=== PATIENT | female | born 2000 | race Caucasian/White ===

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

== ENCOUNTER 2021-02-09 16:36 | Outpatient (CLI) | payer BC, OTHER, MEDICAID, SELFPAY ==
[2021-02-09 16:47] VITALS: BP 123/94; PULSE 113; RESP 16; TEMP 37.3; O2SAT 99; BMI 26.6
[2021-02-09] MEDS: 0.9% Saline Lock 10 ML Syringe IV (16:59)
[2021-02-09 17:38] VITALS: BP 108/77; PULSE 105; RESP 16; TEMP 37.2; O2SAT 100
[2021-02-09 18:20] VITALS: BP 111/77; PULSE 104; RESP 16; TEMP 37.1; O2SAT 100
== END 2021-02-09 18:34 | disposition home or self-care (01) ==
LOC: MS3OUT 16:37 → MS3 16:37
PROVIDERS: PCP Pediatrics; Referring Provider Nurse Practitioner Adult Health; Visit Provider Nurse Practitioner Adult Health
DX: U07.1 COVID-19 (principal)
CPT/HCPCS: J7050; M0245; Q0245; A4216

== ENCOUNTER 2022-03-19 10:50 | Outpatient (CLI) | payer BC, MEDICAID, SELFPAY ==
[2022-03-19 11:00] VITALS: BMI 29.2
[2022-03-19 11:09] VITALS: TEMP 36.8
[2022-03-19 11:10] VITALS: BP 118/75; PULSE 108; O2SAT 90
[2022-03-19 11:11] VITALS: PULSE 111; O2SAT 96
--- NOTE | 2022-03-19 20:35 | OB.TRI.NOTE ---
HPI - General HPI Narrative GUCCI VARGAS, is a 22 F at 34.0 weeks gestation who presents with decreased movement. She stated she has felt minimal movement since this morning. Patient has a history of a demise after delivering at 33 weeks (known anomalies). Patient denies any contractions, loss of fluid or vaginal bleeding. PFSH PFSH Home Medications vits,calcium no.78-iron fumarate-folic acid 29 mg-1 mg tablet (Prenatabs FA) 1 tab PO DAILY 06/15/18 [History Last Taken 06/14/18] acetaminophen 500 mg tablet 1,000 mg PO Q8H PRN PRN Mild Pain (-04/28) 06/17/18 [Rx Last Taken Unknown] Lactobacillus acidophilus 10 billion cell capsule (Probiotic) 10,000 mmu cells PO DAILY 03/19/22 [History Last Taken Unknown] Vitamin D See Rx Instructions .Route .COMPLEX 03/19/22 [History Last Taken Unknown] Allergy/AdvReac Type Severity Reaction Status Date / Time No Known Allergies Allergy Verified 03/19/22 12:00 Social History Smoking Status: Never smoker History Elective abortions Hx Para 0 Spontaneous abortions Hx # Term Pregnancies Ectopic pregnancies Hx # Pregnancies Multiple births # of living children ROS Eyes Eyes: Denies blurry vision Cardiovascular Cardiovascular: Reports none; Denies chest pain at rest, chest pain with activity or dizziness Respiratory/Chest Respiratory/Chest: Denies cough or dyspnea Gastrointestinal Gastrointestinal: Reports none and other; Denies diarrhea or vomiting Genitourinary Genitourinary: Denies dysuria Musculoskeletal Musculoskeletal: Reports none Integumentary Integumentary: Reports none; Denies rash Neurologic Neurologic: Denies dizziness, headache(s) or other visual disturbances Psychiatric Psychiatric: Reports none Physical Exam Const alert and no apparent distress General Appearance: cooperative Orientation / Consciousness: awake Exam Limitations: no limitations HEENT normocephalic Eyes General Eye: normal appearance of both eyes Neck full ROM Chest inspection of chest normal Resp normal respiratory effort and normal air movement Effort and Inspection: symmetric chest movement Auscultation: clear to auscultation bilaterally Cardio regular rate GI soft to palpation, non-tender and non-distended Inspection: and other Back/Spine normal ROM Extremity full ROM, normal capillary refill and no calf tenderness Skin no rashes or lesions noted Neuro oriented x3 and CN's II-XII intact bilaterally Psych mental status grossly normal NST FHR Rate Baby A Baseline: 130 Variability:: Moderate Accelerations:: 15 x 15 Decelerations:: None NST Reactive:: Yes FHR Category:: Category I Uterine Activity:: none Assessment & Plan (1) 34 weeks gestation of : (2) Decreased movement: (3) History of : (4) Short interval between pregnancies affecting , antepartum: PLAN: Plan NST reactive Patient has felt movement since arrival to triage Support provided D/C home with follow up in office PTL and kick counts reviewed
== END 2022-03-19 12:00 | disposition home or self-care (01) ==
LOC: WPOUT 10:59 → WP 11:00
PROVIDERS: PCP Internal Medicine; Referring Provider Advanced Practice Midwife; Visit Provider Advanced Practice Midwife
DX: O36.8130 Decreased fetal movements, third trimester, not applicable or unspecified (principal); Z3A.34 34 weeks gestation of pregnancy
CPT/HCPCS: 59025; 59050

== ENCOUNTER 2022-04-08 19:30 | Outpatient (CLI) | payer BC, MEDICAID, SELFPAY ==
[2022-04-08 19:46] VITALS: BP 121/71; PULSE 137
[2022-04-08 19:47] VITALS: PULSE 129; TEMP 37; O2SAT 98
[2022-04-08 19:52] VITALS: BMI 29.8
[2022-04-08 20:29] LABS: ROM Internal Control Test YES-OK TO RESULT pt. (Internal QC)
[2022-04-08 21:00] LABS: ROM Patient Test Negative (Negative)
--- NOTE | 2022-04-08 21:02 | OB.TRI.NOTE ---
HPI - General HPI Narrative GUCCI VARGAS, is a 22 F at 36.6 weeks gestation who presents to triage for contractions. Patient called in and stated she has been having contractions most of the day today. Irregular at times but usually occurring every 5-10 minutes. Rates pain 6/10. She has to stop walking and talking through some of the contractions. Positive movement. Denies any vaginal bleeding or gush of fluid. Reports an increase in vaginal discharge today. PFSH PFSH Home Medications vits,calcium no.78-iron fumarate-folic acid 29 mg-1 mg tablet (Prenatabs FA) 1 tab PO DAILY 06/15/18 [History Last Taken 04/08/22] Lactobacillus acidophilus 10 billion cell capsule (Probiotic) 10,000 mmu cells PO DAILY 03/19/22 [History Last Taken 04/08/22] Vitamin D See Rx Instructions .Route .COMPLEX 03/19/22 [History Last Taken 04/08/22] Allergy/AdvReac Type Severity Reaction Status Date / Time gluten AdvReac Upset Verified 04/08/22 19:58 Stomach Social History Smoking Status: Never smoker History Elective abortions Hx Para 0 Spontaneous abortions Hx # Term Pregnancies Ectopic pregnancies Hx # Pregnancies Multiple births # of living children ROS Eyes Eyes: Denies blurry vision Cardiovascular Cardiovascular: Reports none; Denies chest pain at rest, chest pain with activity or dizziness Respiratory/Chest Respiratory/Chest: Denies cough or dyspnea Gastrointestinal Gastrointestinal: Reports none and other; Denies diarrhea or vomiting Genitourinary Genitourinary: Denies dysuria Musculoskeletal Musculoskeletal: Reports none Integumentary Integumentary: Reports none; Denies rash Neurologic Neurologic: Denies dizziness, headache(s) or other visual disturbances Psychiatric Psychiatric: Reports none Physical Exam Const alert and no apparent distress General Appearance: cooperative Orientation / Consciousness: awake Exam Limitations: no limitations HEENT normocephalic Eyes General Eye: normal appearance of both eyes Neck full ROM Chest inspection of chest normal Resp normal respiratory effort and normal air movement Effort and Inspection: symmetric chest movement Auscultation: clear to auscultation bilaterally Cardio regular rate GI soft to palpation, non-tender and non-distended Inspection: and other Back/Spine normal ROM Extremity full ROM, normal capillary refill and no calf tenderness Skin no rashes or lesions noted Neuro oriented x3 and CN's II-XII intact bilaterally Psych mental status grossly normal Assessment & Plan (1) Short interval between pregnancies affecting , antepartum: (2) 36 weeks gestation of : (3) contractions: (4) Positive GBS test: (5) GDM (gestational diabetes mellitus): PLAN: Plan NST reactive- Cat, 1 tracing ROM plus- NEGATIVE CE- /-2 Extended monitoring No cervical change D/C home with follow up in office Patient agrees with plan of care Dr. Alvares notified
[2022-04-08 21:30] VITALS: PULSE 95; O2SAT 97
== END 2022-04-08 22:18 | disposition home or self-care (01) ==
LOC: WPOUT 19:34 → WP 19:35
PROVIDERS: PCP Internal Medicine; Visit Provider Advanced Practice Midwife
DX: O60.03 Preterm labor without delivery, third trimester (principal); O99.820 Streptococcus B carrier state complicating pregnancy; O24.410 Gestational diabetes mellitus in pregnancy, diet controlled; O26.893 Other specified pregnancy related conditions, third trimester; Z3A.36 36 weeks gestation of pregnancy
CPT/HCPCS: 59025; 59050; 84112; 99221; G0378

== ENCOUNTER 2022-04-16 16:57 | Outpatient (CLI) | payer BC, MEDICAID, SELFPAY ==
[2022-04-16 17:15] VITALS: BP 127/78; PULSE 93; TEMP 36.7
[2022-04-16 17:16] VITALS: PULSE 91; O2SAT 97
[2022-04-16 17:17] VITALS: BMI 29.7
[2022-04-16 17:34] LABS: ROM Internal Control Test YES-OK TO RESULT pt. (Internal QC); ROM Patient Test Negative (Negative)
--- NOTE | 2022-04-19 06:52 | OB.TRI.NOTE ---
HPI - General General Date of Admission: 05/14/22 Date of Service: 05/14/22 HPI Narrative GUCCI VARGAS, is a 22 F who presents c/o vaginal discharge in Maternal Data Information Final CYRIL: 04/30/22 Gestational age: 38 0/7 PFSH PFSH Home Medications vits,calcium no.78-iron fumarate-folic acid 29 mg-1 mg tablet (Prenatabs FA) 1 tab PO DAILY 06/15/18 [History Last Taken 04/15/22 21:00] Lactobacillus acidophilus 10 billion cell capsule (Probiotic) 10,000 mmu cells PO DAILY 03/19/22 [History Last Taken 04/15/22 21:00] Vitamin D See Rx Instructions .Route .COMPLEX 03/19/22 [History Last Taken 04/15/22 21:00] Allergy/AdvReac Type Severity Reaction Status Date / Time Environmental Allergies: Allergy Other Verified 04/16/22 17:19 Uncoded [seasonal] gluten AdvReac Upset Verified 04/16/22 17:19 Stomach Social History Smoking Status: Never smoker History Elective abortions Hx Para 0 Spontaneous abortions Hx # Term Pregnancies Ectopic pregnancies Hx # Pregnancies Multiple births # of living children NST FHR Rate Baby A Baseline: 140 Variability:: Moderate Accelerations:: 15 x 15 Decelerations:: None NST Reactive:: Yes FHR Category:: Category I Uterine Activity:: irreg ctxs Assessment & Plan (1) 38 weeks gestation of : PLAN: NST reactive, return prn or as scheduled. No evidence of labor oer SROM (2) False labor:
--- NOTE | 2022-04-19 11:46 | OB.TRI.NOTE ---
HPI - General General Date of Service: 04/16/22 Chief Complaint: r/o ROM HPI Narrative GUCCI VARGAS, is a 22 F @38 weeks who presents to R/o ROM PFS PFS Home Medications vits,calcium no.78-iron fumarate-folic acid 29 mg-1 mg tablet (Prenatabs FA) 1 tab PO DAILY 06/15/18 [History Last Taken 04/15/22 21:00] Lactobacillus acidophilus 10 billion cell capsule (Probiotic) 10,000 mmu cells PO DAILY 03/19/22 [History Last Taken 04/15/22 21:00] Vitamin D See Rx Instructions .Route .COMPLEX 03/19/22 [History Last Taken 04/15/22 21:00] Allergy/AdvReac Type Severity Reaction Status Date / Time Environmental Allergies: Allergy Other Verified 04/16/22 17:19 Uncoded [seasonal] gluten AdvReac Upset Verified 04/16/22 17:19 Stomach Social History Smoking Status: Never smoker History Elective abortions Hx Para 0 Spontaneous abortions Hx # Term Pregnancies Ectopic pregnancies Hx # Pregnancies Multiple births # of living children NST FHR Rate Baby A Baseline: 140 Variability:: Moderate Accelerations:: 15 x 15 Decelerations:: None NST Reactive:: Yes FHR Category:: Category I Uterine Activity:: irregular Assessment & Plan (1) False labor: (2) 38 weeks gestation of : (3) GDM (gestational diabetes mellitus): (4) Positive GBS test: PLAN: Plan @ 38 weeks, membranes intact ROM plus was negative NST was reactive dc home
--- NOTE | 2022-04-21 12:54 | PCM.OPRPT ---
Report of Operation Date of Procedure: 04/21/22 Pre-Operative Diagnosis: desires sterilization Post-Operative Diagnosis: same Surgery/Procedure Performed:: Laparoscopic bilateral salpingectomy Description of Surgical Findings:: Normal tubes and ovaries bilaterally Surgeon: Lorena Leyva cosmetics demonstrator: None (Rosemary Castro, MS3 ) Type of Anesthesia: General and Local Special Medications: 0.5% maracaine Specimen's removed: Bilateral fallopian tubes Drains: none Estimated Blood Loss (mL): 10 Fluids Replaced: 1000 Description of Procedure: After informed consent was obtained patient was taken to the operating room she was placed in supine position she was given anesthesia. She was then placed in the [facility] and she was prepped and draped in normal sterile fashion. Bladder was drained prior to the start of procedure. At this time attention was turned to the vaginal portion where weighted speculum placed at posterior fornix vagina single-tooth tenaculum was used to gently grasp the internal the cervix. uterus was gently sounded to approximately 7 cm. Uterine manipulator was placed without difficulty. Legs then placed in parallel with the abdomen the tenaculum and the weighted speculum were removed. 2 towel clamps were placed at level of umbilicus. Marcaine was injected infraumbilical and a small incision was made. The 5 mm trocar was placed under direct visualization. CO2 gas was used to insufflate the intra-abdominal cavity. Upon inspection no gross abnormalities appreciated- Uterine perforation noted from manipulator at fundus, minimal bleeding noted. the uterus tubes and ovaries appeared to be normal. At this time then the LLQ and RLQ ports were placed First Marcaine was injected and small incision was made a knife and the 5 mm trocars were placed. At this time then tubes were traced back to the fimbriated ends. Enseal was used to coagulate and ligate along mesosalpinx bilaterally until tubes removed completely. Good hemostasis was appreciated. The manipulator was removed while watching laparoscopically. At this time Michell placed over fundal aspect but small oozing still noted so monopolor cautery used to coagulate area- excellent hemostatis noted. At this time procedure was deemed complete successful. The gas was desufflated on from the intra-abdominal cavity. The trochars were removed. Skin was closed using 4-0 Monocryl in a subcutaneous fashion. Dermabond glue was placed. Instrument lap and needle counts were correct ?2. The uterine manipulator was removed. Vaginal sweep was performed it was negative. There were no complications anticipated normal postoperative course for this patient. Grafts/Implants Used: none Procedure Start Time: 12:18 Procedure Stop Time: 12:54 Complications uterine perforation at uterine fundus at time of placement of uterine manipulator- ancef 2g given. Admit VTE Documentation VTE Present on Admission: Yes VTE Mechan Device Prophylaxis: SCD's VTE Pharm Prophylaxis ordered?: No Reason prophylaxis not ordered:: Procedure Not Indicated
--- NOTE | 2022-04-21 12:59 | DCINST_ITS ---
Discharge Instructions Procedure Other Diet Discharge Diet: No restrictions Activity May resume sexual activity in: 2 weeks Lifting Restrictions: 20-25 lbs Dressing / Incision Call your doctor if your incision/area has: Continuous Slow Oozing, Sudden Increased Bleeding, Increased Pain/ Swelling, Increased Redness, Foul Smelling Discharge and Swelling at the incision site Call your doctor if you observe: Fever of 101 or Higher, Inability to urinate, Inability to have a bowel movement, Using more than 1 pad per hour and Uncontrolled pain Additional Dressing/Incision Instructions:: You have skin glue over your incision sites, do not pick off. You may shower and let the soap and water run over the incision sites and dab dry. Follow Up Care Please Follow Up With: Lorena Leyva MD When: 1-2 weeks post OP if you need an appointment please call [phone] Test Results: Test results from this visit will be discussed in further detail at your follow- up appointment, if applicable. Discharge Plan Admission Reason For Visit: R/O RUPTURE Attending Provider: Lorena Leyva Primary Care Provider: Adelina Carrillo Discharge Date/Time: 04/16/22 17:45 Instructions Patient Instructions: ED False Labor, OB Triage: Return to Hospital or Notify Physician if you Experience: Discharge Orders/Prescriptions Prescriptions: No Action Prenatabs FA 1 TABLET tablet 1 tab PO DAILY Probiotic 10 billion cell Capsule 10,000 mmu cells PO DAILY Vitamin D See Rx Instructions .ROUTE .COMPLEX Rx Instructions: Vitamin D taken daily Referrals / Follow Up: Adelina Carrillo MD [Primary Care Provider] - Disposition Patient Disposition: Home, Self Care
== END 2022-04-16 17:45 | disposition home or self-care (01) ==
LOC: WPOUT 17:03 → WP 17:04
PROVIDERS: PCP Internal Medicine; Referring Provider Obstetrics & Gynecology; Visit Provider Obstetrics & Gynecology
DX: O47.1 False labor at or after 37 completed weeks of gestation (principal); O24.419 Gestational diabetes mellitus in pregnancy, unspecified control; Z3A.38 38 weeks gestation of pregnancy
CPT/HCPCS: 59025; 59050; 84112; 99221; G0378

== ENCOUNTER 2022-04-24 06:55 | Inpatient (IN) | payer BC, MEDICAID, SELFPAY ==
[2022-04-24] VITALS (17 sets, daily range): BP systolic 108–134; BP diastolic 66–84; PULSE 73–119; RESP 16; TEMP 36.1–37.4; O2SAT 96–100; BMI 30.3
[2022-04-24] MEDS: Lactated Ringers 1,000 ML 50 ML IV (07:35)
[2022-04-24 08:00] LABS: Absolute Lymphocyte Count 1.59 X10^3/uL (0.83-4.51); Absolute Neutrophil Count 4.2 X10^3/uL (2.0-7.7); Basophil# 0.03 X10^3/uL; Basophil% 0.4 % (0-1); Eosinophil# 0.05 X10^3/uL; Eosinophils% 0.7 % (0-5); Hematocrit 39.4 % (37-47); Hemoglobin 12.5 g/dL (12.0-15.0); Lymphocyte # 1.59 X10^3/ul (0.83-4.51); Lymphocyte % 23.7 % (19-41); Mean Corp Hgb Conc 31.7 g/dL (32-36); Mean Corpuscular Volume 81.9 fL (81-99); Mean Platelet Vol. 10.6 fl (6.2-12.0); Monocyte# 0.85 X10^3/uL; Monocyte% 12.7 % (0-10); NRBC Flagged by Analyzer 0 % (0-5); Neutrophil # 4.16 X10^3/uL (2.7-7.7); Neutrophil % 62.1 % (47-70); Platelet Count 254 K/mm3 (150-450); RBC Distribution Width CV 15.2 % (11.6-14.6); RBC Distribution Width SD 45.1 fl (35.1-43.9); Red Blood Count 4.81 M/mm3 (4.2-5.4); White Blood Count 6.7 K/mm3 (4.4-11.0)
[2022-04-24] MEDS: Oxytocin 15 Units/NS 250ml 15 UNITS/250 ML IV.SOLN 2 UNITS IV (08:15)
[2022-04-24 08:46] LABS: Syphilis Antibodies Non-reactive
--- NOTE | 2022-04-24 08:54 | HP.PCM.OB_ITS ---
HPI - General General Date of Admission: 04/24/22 HPI Narrative GUCCI VARGAS, is a 22 F who is [id number] at 39w1d for induction of labor due to GDMA1. History of due to congenital anomalies. This has been complicated by GDMA1 and diet controlled. Maternal Data Information Gestational age: 39w1d [facility] Medical History (Updated 04/24/22 @ 16:42 by Meg Brower CNM) History of premature rupture of membranes (PPROM) Home Medications vits,calcium no.78-iron fumarate-folic acid 29 mg-1 mg tablet (Prenatabs FA) 1 tab PO DAILY 06/15/18 [History Last Taken 04/23/22 21:00] Lactobacillus acidophilus 10 billion cell capsule (Probiotic) 10,000 mmu cells PO DAILY supplement 03/19/22 [History Last Taken 04/23/22 21:00] Vitamin D See Rx Instructions .Route .COMPLEX supplement 03/19/22 [History Last Taken 04/23/22 21:00] cetirizine 10 mg tablet (Zyrtec) 10 mg PO DAILY allergies 04/24/22 [History Last Taken 04/23/22 21:00] Allergy/AdvReac Type Severity Reaction Status Date / Time Environmental Allergies: Allergy Other Verified 04/24/22 07:47 Uncoded [seasonal] gluten AdvReac Upset Verified 04/24/22 07:47 Stomach Social History Smoking Status: Never smoker History Elective abortions Hx Para 2 Spontaneous abortions Hx # Term Pregnancies Ectopic pregnancies Hx # Pregnancies Multiple births # of living children NST FHR Rate Baby A Baseline: 140 Variability:: Moderate Accelerations:: 15 x 15 Decelerations:: None FHR Category:: Category I Uterine Activity:: Irregular, mild ROS Constitutional Constitutional: Reports systems reviewed and no addt'l complaints, except as documented; Denies headache(s) Eyes Eyes: Denies acute decrease in peripheral vision, blurry vision or change in vision ENT HEENT: Reports systems reviewed and no addt'l complaints, except as documented Cardiovascular Cardiovascular: Denies chest pain or dizziness Respiratory/Chest Respiratory/Chest: Denies cough, dyspnea, dyspnea on exertion, shortness of breath at rest or shortness of breath with exertion Gastrointestinal Gastrointestinal: Denies abdominal pain, diarrhea, nausea or vomiting Genitourinary Genitourinary: Denies abdominal discomfort Musculoskeletal Musculoskeletal: Denies limited range of motion Integumentary Integumentary: Reports systems reviewed and no addt'l complaints, except as documented Neurologic Neurologic: Reports systems reviewed and no addt'l complaints, except as documented Psychiatric Psychiatric: Reports systems reviewed and no addt'l complaints, except as documented Endocrine Endocrinology: Reports systems reviewed and no addt'l complaints, except as documented Hematologic/Lymphatic Hematologic/Lymphatic: Reports systems reviewed and no addt'l complaints, except as documented Allergic/Immunologic Allergic/Immunologic: Reports systems reviewed and no addt'l complaints, except as documented Vital Signs Vital Signs Vital Signs: 04/24/22 07:59 04/24/22 07:59 04/24/22 07:59 Temperature Temperature Source Temporal Pulse Rate 107 H Blood Pressure 111/66 BP Systolic 111 BP Diastolic 66 Pulse Ox 04/24/22 07:59 04/24/22 07:59 04/24/22 08:45 Temperature 98.7 F Temperature Source Temporal Pulse Rate Blood Pressure BP Systolic BP Diastolic Pulse Ox 96 04/24/22 08:45 04/24/22 08:45 04/24/22 08:45 Temperature Temperature Source Pulse Rate 86 Blood Pressure 126/84 H BP Systolic 126 BP Diastolic 84 Pulse Ox 97 04/24/22 08:45 Temperature 98.8 F Temperature Source Pulse Rate Blood Pressure BP Systolic BP Diastolic Pulse Ox Weight Weight: 199 lb 6.4 oz Body Mass Index (BMI) 30.3 Physical Exam Const alert and oriented x3 General Appearance: cooperative Orientation / Consciousness: awake, oriented to person, oriented to place and oriented to time Exam Limitations: no limitations HEENT normocephalic Head and Scalp: normal to inspection, normocephalic and atraumatic Face and Sinus: normal facial exam Eyes General Eye: normal appearance of both eyes Neck full ROM Chest Chest: symmetrical chest wall rise Resp normal respiratory effort and normal air movement Auscultation: clear to auscultation bilaterally Cardio regular rate, regular rhythm, S1 normal heart sound, S2 normal heart sound, no murmurs, no rub, no gallops and no clicks GI normal to inspection, nondistended, normoactive bowel sounds and non-tender appearance of the vagina normal Narrative: 4/60/-2. IBOW Bladder / Kidney Exam: no CVA tenderness Manual OB Exam: estimated gestational size appropriate, presentation cephalic, dilated 4, effaced 60% and station -2 Back/Spine normal ROM Extremity normal to inspection and full ROM Skin no rashes or lesions noted Neuro oriented x3, CN's II-XII intact bilaterally and moves all extremities Sensorium / Orientation: awake, alert and oriented to person Motor Exam: clonus absent Deep Tendon Reflexes: Rt Patellar (L4): 2+ and Lt Patellar (L4): 2+ Labs Labs Labs: Blood Type O NEGATIVE Antibody Screen NEGATIVE Hct 39.4 % (37-47) Hgb 12.5 g/dL (12.0-15.0) Syphilis Total Ab Non-reactive Rhogam given: Yes GBS positive RPR negative Rubella Immune HBsAG negative HepC negative HIV negative GC/CT negative Assessment & Plan (1) Rh negative status during : (2) History of : (3) Short interval between pregnancies affecting , antepartum: (4) Positive GBS test: (5) GDM (gestational diabetes mellitus): (6) Elective induction of labor planned: PLAN: Plan 1) Admit to labor and delivery 2) GBS positive, prophylaxis 3) Routine labs 4) Pitocin for active management 5) Continuous EFM 6) Would like unmedicated 7) collaborative physician and notified of patient status
[2022-04-24 09:20] LABS: Bedside Glucose 86 mg/dL (74-106)
[2022-04-24 09:20] LABS: Bedside Glucose 80 mg/dL (74-106)
[2022-04-24] MEDS: Penicillin G 3,000,000 Units 50 ML 100 UNITS IV (13:08)
[2022-04-24 13:45] LABS: Bedside Glucose 74 mg/dL (74-106)
[2022-04-24] MEDS: LACTATED RINGERS 500 ML 999 ML IV (14:40)
[2022-04-24] MEDS: Lidocaine 1% (20 ml mdv) 20 ML Vial INFILT (15:30)
--- NOTE | 2022-04-24 15:53 | EX.PCM.OBRPT ---
Assessment & Plan (1) Vaginal delivery: (2) First degree perineal laceration: Maternal Data Information Final CYRIL: 04/30/22 Vaginal Delivery Maternal Presentation Maternal Presentation: Elective Induction Type of Induction: Pitocin Operative Information Date of Procedure: 04/24/22 Pre-Operative Diagnosis: Induction of labor, elective. GDMA1 history of demise Post-Operative Diagnosis: , First degree perineal laceration Surgery / Procedure Performed: Spontaneous Vaginal Delivery Type of Anesthesia: Local with 2% Lidocaine Estimated Blood Loss: 300 ml Time of Delivery: 15:17 Findings Description of Procedure: Progressed to complete with urge to push. Unmedicated . of viable male over first degree perineal laceration perineum. APGARS 8,9 respectively. Infant head delivered CAN x2, delivered through loose with body immediately forthcoming. Placed on maternal abdomen, strong cry. Mouth and nares suctioned for secretions. Pitocin started for active 3rd stage management. Cord doubly clamped and cut by FOB after pulsations ceased, delayed cord clamping. Placenta delivered intact via tomasa, 3 vessel cord intact. Perineum inspected and revealed first degree perineal laceration. Repaired with 3.0 vicryl Rapide and lidocaine. Fundus firm and hemostasis achieved. EBL 300ml. Mom and baby stable, planning to breastfeed. Family bonding well. Dr. Khan notified of delivery. Presentation: Vertex and ALMITA Amniotic Membrane Rupture Type: Spontaneous Amniotic Fluid Description: Clear Placental Delivery Description: Spontaneous Placenta Disposition: [facility] Cord Vessel Description: 3 Vessels Cord Entanglement: Around neck x 2, loose Nuchal Cord Compression: Without compression A Gender: Male (1 minute): 8 (5 minute): 9 Delayed Cord Clamping: Yes Post Vaginal Delivery Medications Given After Delivery: IV Pitocin Episiotomy Description: None Laceration: Perineal Extension/lac and 1st degree Complication Complications: None
[2022-04-24] MEDS: Oxytocin 15 Units/NS 250ml 15 UNITS/250 ML IV.SOLN 83 UNITS IV (15:58)
[2022-04-24] MEDS: Benzocaine/Lanolin/Aloe Vera 1 SPRAY EACH TOPICAL (16:32)
[2022-04-24] MEDS: Acetaminophen 500 MG Tablet 1000 MG PO ×2 (16:32→22:57)
[2022-04-24 17:05] LABS: Bedside Glucose 84 mg/dL (74-106)
[2022-04-24] MEDS: Ibuprofen 600 MG Tablet PO (18:10)
[2022-04-25] VITALS (8 sets, daily range): BP systolic 97–108; BP diastolic 55–68; PULSE 78–95; RESP 16; TEMP 36.5–37.2
[2022-04-25] MEDS: Ibuprofen 600 MG Tablet PO ×3 (01:12→16:24)
[2022-04-25 05:34] LABS: Hematocrit 34.8 % (37-47); Hemoglobin 11.2 g/dL (12.0-15.0); Mean Corp Hgb Conc 32.2 g/dL (32-36); Mean Corpuscular Hgb 25.9 pg (27.0-32.0); Mean Corpuscular Volume 80.6 fL (81-99); Mean Platelet Vol. 10.5 fl (6.2-12.0); Platelet Count 245 K/mm3 (150-450); RBC Distribution Width SD 43.5 fl (35.1-43.9); Red Blood Count 4.32 M/mm3 (4.2-5.4); White Blood Count 10.3 K/mm3 (4.4-11.0)
[2022-04-25 05:51] LABS: Bedside Glucose 83 mg/dL (74-106)
--- NOTE | 2022-04-25 08:59 | PCM.PN.OB ---
Subjective Subjective Denies complaints Objective Data Objective Data Vital Signs: Vital Signs Temp Pulse Resp BP Pulse Ox O2 Del Method 98.4 F 95 16 108/68 99 Room Air 04/25/22 08:42 04/25/22 08:42 04/25/22 08:42 04/25/22 08:42 04/24/22 17:45 04/25/22 08:42 Oxygen Delivery Method Room Air Weight: 199 lb 6.4 oz Body Mass Index (BMI) 30.3 Intake & Output: Intake and Output for Last 24 Hours 04/23/22 04/24/22 04/25/22 23:59 23:59 23:59 Intake Total 1514.17 / 1514.17 Output Total 1100 / 1100 Balance 414.17 / 414.17 Lab / Micro Data Result Diagrams: 04/25/22 05:25 Labs: Laboratory Results - last 24 hr 04/24/22 07:35: Blood Type O NEGATIVE, Antibody Screen NEGATIVE 04/24/22 07:55: POC Glucose 86 04/24/22 08:56: POC Glucose 80 04/24/22 13:06: POC Glucose 74 04/24/22 16:38: POC Glucose 84 04/24/22 18:00: Screen NEGATIVE 04/25/22 05:19: POC Glucose 83 04/25/22 05:25: WBC 10.3, RBC 4.32, Hgb 11.2 L, Hct 34.8 L, MCV 80.6 L, MCH 25.9 L, MCHC 32.2, RDW Std Deviation 43.5, RDW Coeff of Suha 15.0 H, Plt Count 245, MPV 10.5 Physical Exam Const alert, oriented x3 and no apparent distress HEENT normocephalic GI soft to palpation, non-tender and non-distended GI Narrative: fundus firm, mid & below umbilicus Extremity normal to inspection and no calf tenderness Assessment & Plan (1) Vaginal delivery: COMMENT: PPD#1 PLAN: Routine home D/c home per patient request (2) GDM (gestational diabetes mellitus): PLAN: FBS normal this am Plan for PP screening
--- NOTE | 2022-04-25 09:00 | DCINST_ITS ---
Discharge Instructions Diet Discharge Diet: No restrictions Activity Discharge Activity: May Shower May resume sexual activity in: 6 weeks Weight Bearing Status: Weight bearing as tolerated Dressing / Incision Call your doctor if you observe: Fever of 101 or Higher, Coldness, Increased Pain, Change in Color, Inability to urinate, Inability to have a bowel movement, Using more than 1 pad per hour, Shortness of breath, Dizziness, Fainting spells, Chest pain, Increased palpitations (irregular heartbeat), Calf discomfort and Uncontrolled pain Follow Up Care Please Follow Up With: Meg Brower CNM When: Follow up in 2 and 6 weeks for visits. Test Results: Test results from this visit will be discussed in further detail at your follow- up appointment, if applicable. Discharge Plan Admission Admit Date/Time: 04/24/22 06:55 Primary Reason for Your Visit: Vaginal delivery Attending Provider: Meg Brower Primary Care Provider: Adelina Carrillo Discharge Orders/Prescriptions Prescriptions: New acetaminophen 500 mg Tablet 1,000 mg PO Q6H PRN PRN (Reason: Pain 1-10 Or Fever) Qty: 0 0RF ibuprofen 600 mg Tablet 600 mg PO Q6H PRN PRN (Reason: Pain Score 1-3) Qty: 0 0RF Continued Prenatabs FA 1 TABLET tablet 1 tab PO DAILY Probiotic 10 billion cell Capsule 10,000 mmu cells PO DAILY Vitamin D See Rx Instructions .ROUTE .COMPLEX Rx Instructions: Vitamin D taken daily cetirizine [Zyrtec] 10 mg Tablet 10 mg PO DAILY Referrals / Follow Up: Adelina Carrillo MD [Primary Care Provider] - Disposition Disposition (needs filled in before D/C Order can be placed): Home, Self Care
== END 2022-04-25 16:35 | disposition home or self-care (01) | DRG 807 ==
PROVIDERS: Admitting Provider Advanced Practice Midwife; PCP Internal Medicine; Visit Provider Advanced Practice Midwife
DX: O24.420 Gestational diabetes mellitus in childbirth, diet controlled (principal); Z37.0 Single live birth; O26.893 Other specified pregnancy related conditions, third trimester; O69.81X0 Labor and delivery complicated by cord around neck, without compression, not applicable or unspecified; O70.0 First degree perineal laceration during delivery; O99.824 Streptococcus B carrier state complicating childbirth; O42.92 Full-term premature rupture of membranes, unspecified as to length of time between rupture and onset of labor; Z87.59 Personal history of other complications of pregnancy, childbirth and the puerperium; Z67.41 Type O blood, Rh negative; Z3A.39 39 weeks gestation of pregnancy
CPT/HCPCS: 59025; 59050; 82962; 85025; 85027; 85461; 86780; 86850; 86900; 86901; 99221; J7120; G0378; J2790